=== PATIENT | female | born 1980 | race African-American/Black ===

== ENCOUNTER 2019-05-12 10:54 | Outpatient (CLI) | payer MEDICAID ==
--- NOTE | 2019-05-12 13:53 | ULT ---
PELVIC ULTRASOUND INCLUDING TRANSABDOMINAL AND TRANSVAGINAL AND VASCULAR DUPLEX WITH COLOR AND SPECTR AL DOPPLER IMAGING: HISTORY: Anemia, abnormal uterine bleeding. FINDINGS: The uterus measures 8.4 cm x 4 cm x 6 cm. Right ovary measures 4.3 x 2.5 x 3.6 cm. The left ovary measures 3.3 x 2.2 x 1.6 cm. Right ovarian cyst measuring 2.2 x 2.4 x 2.1 cm. No free fluid. No abscess or other abnormal fluid collection. Flow is documented to both ovaries. No evidence for ovarian torsion. IMPRESSION: Small right ovarian cyst. No other significant acute process. POS: [facility]
== END 2019-05-12 10:55 | disposition home or self-care (01) ==
LOC: SCSULT 10:54
PROVIDERS: ATTEND Family Medicine
DX: D64.9 Anemia, unspecified (principal); N93.9 Abnormal uterine and vaginal bleeding, unspecified; N83.201 Unspecified ovarian cyst, right side
CPT/HCPCS: 76856